=== PATIENT | female | born 1935 | race Caucasian/White ===

== ENCOUNTER → 2021-05-26 14:55 | Outpatient (BNVA) | payer MEDICARE, SELFPAY | PROVIDERS: PCP Internal Medicine; Visit Provider Anesthesiology | DX: M51.36 Other intervertebral disc degeneration, lumbar region (principal); M47.816 Spondylosis without myelopathy or radiculopathy, lumbar region; G89.4 Chronic pain syndrome; Z88.8 Allergy status to other drugs, medicaments and biological substances | CPT/HCPCS: 99202 ==

== ENCOUNTER 2021-09-19 07:18 | Day surgery (SDC) | payer MEDICARE, SELFPAY ==
--- NOTE | 2021-09-18 12:21 | HO.ANESPROP2 ---
Documented by User: Chelita Manrique NP 09/18/21 12:21 HPI - Anesthesia Eval Consult details Narrative: 86yo F for Bilateral L3-L4-DR L5 Diagnostic Medial Branch Block PMFSH Active Problems Active Problems: All Active Problems (Updated 05/26/21 @ 17:50 by Noel Benoit MD) Chronic pain syndrome (Acute) Spondylosis of lumbar spine (Acute) Disc degeneration, lumbar (Acute) Past Medical History Medical History (Updated 05/26/21 @ 17:50 by Noel Benoit MD) Arthritis Cervical spinal stenosis Chronic pain syndrome Constipation Cystocele with rectocele Disc degeneration, lumbar Diverticulosis History of uterine cancer Hx of esophageal reflux Hypercholesterolemia Hypertension Insomnia Low back pain 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 Rotator cuff tendonitis Spondylosis of lumbar spine Surgical History Surgical History (Updated 09/12/21 @ 10:51 by Linh Mar RN) H/O: hysterectomy History of repair of rectocele History of total right knee replacement Hx of cataract extraction Hx of total adrenalectomy Social History Social History Patient Tobacco Use Status: Never used Tobacco Use of substances other than those prescribed or required for medical reasons: No Are you DNR?: Yes Advance Directives: No Advance Directives Information Provided: Yes Recently lost weight without trying: No Nutrition Risks: No Nutritional Risk Meds Allergies Allergy/AdvReac Type Severity Reaction Status Date / Time Avyjdcy-NUV-IeW Reductase Allergy Intermediate muscle Verified 09/12/21 10:47 Inhibitor cramping [BQHUUUY-[id number]-BFK REDUCTASE INHIBITOR] Home Medications Medication Instructions Recorded Confirmed Last Taken Type aspirin 81 mg tablet,delayed 81 mg PO DAILY 05/26/21 Unknown History release (Adult Low Dose Aspirin) atenolol 25 mg tablet 25 mg PO DAILY 05/26/21 09/19/21 History calcium carbonate 600 mg calcium 600 mg PO DAILY 05/26/21 Unknown History (1,500 mg) tablet (Calcium) clotrimazole 1 % topical cream appl topical 05/26/21 Unknown History hydrochlorothiazide 25 mg tablet 25 mg PO DAILY 05/26/21 Unknown History losartan 25 mg tablet 75 mg PO DAILY 05/26/21 09/19/21 History omeprazole magnesium 10 mg oral 10 mg PO DAILY 05/26/21 Unknown History suspension,delayed release (Prilosec) Exam Exam Date and Time: September 18, 2021 1221 Height,Weight and Vital Signs: Height 5 ft Weight 69.853 kg Assessment and Plan Assessment Anesthesia Assessment: Chart Reviewed Documented by User: Arun Thompson MD 09/19/21 09:44 HPI - Anesthesia Eval Consult details Narrative: 86yo F for Bilateral L3-L4-DR L5 Diagnostic Medial Branch Block no CP , no SOB funtional status more than 4 mets PMFSH Past Medical History Medical History (Updated 05/26/21 @ 17:50 by Noel Benoit MD) Arthritis Cervical spinal stenosis Chronic pain syndrome Constipation Cystocele with rectocele Disc degeneration, lumbar Diverticulosis History of uterine cancer Hx of esophageal reflux Hypercholesterolemia Hypertension Insomnia Low back pain 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 Rotator cuff tendonitis Spondylosis of lumbar spine Family History Family history of problems with anesthesia: No Surgical History Surgical History (Updated 09/12/21 @ 10:51 by Linh Mar RN) H/O: hysterectomy History of repair of rectocele History of total right knee replacement Hx of cataract extraction Hx of total adrenalectomy History of Problems with Anesthesia: No Social History Social History Patient Tobacco Use Status: Never used Tobacco Use of substances other than those prescribed or required for medical reasons: No Are you DNR?: Yes Advance Directives: No Advance Directives Information Provided: Yes Recently lost weight without trying: No Nutrition Risks: No Nutritional Risk Meds Allergies Allergy/AdvReac Type Severity Reaction Status Date / Time Odetuqe-VHA-DjC Reductase Allergy Intermediate muscle Verified 09/12/21 10:47 Inhibitor cramping [TBZTSHZ-IUF-UEI REDUCTASE INHIBITOR] Home Medications Medication Instructions Recorded Confirmed Last Taken Type aspirin 81 mg tablet,delayed 81 mg PO DAILY 05/26/21 Unknown History release (Adult Low Dose Aspirin) atenolol 25 mg tablet 25 mg PO DAILY 05/26/21 09/19/21 History calcium carbonate 600 mg calcium 600 mg PO DAILY 05/26/21 Unknown History (1,500 mg) tablet (Calcium) clotrimazole 1 % topical cream appl topical 05/26/21 Unknown History hydrochlorothiazide 25 mg tablet 25 mg PO DAILY 05/26/21 Unknown History losartan 25 mg tablet 75 mg PO DAILY 05/26/21 09/19/21 History omeprazole magnesium 10 mg oral 10 mg PO DAILY 05/26/21 Unknown History suspension,delayed release (Prilosec) Exam Airway Mallampati Class: III TM Dist: >3cm Neck ROM: Full Partial: Upper Loose/Missing/Broken Teeth: Yes (Poor dentition ) Heart: S1,S2 Lungs: b/l breath sounds Assessment and Plan Assessment Anesthesia Assessment: Anesthesia Plan Discussed Final Anesthetic Review Family History of Problems with Anesthesia: No History of Problems with Anesthesia: No NPO: Yes ASA Class: II Final Preanesthetic Review: Meds/Allgs Chart Reviewed, Consent Obtained/Reviewed and Anes Risks/Benef Reviewed Patient Risk: Intermediate Procedure Risk: Intermediate Anesthetic Plan Anesthetic Plan: MAC: Disposition: Standard PACU
--- NOTE | 2021-09-19 | ECG_ITS ---
Test Reason : rbbb Blood Pressure : / mmHG Vent. Rate : 067 BPM Atrial Rate : 067 BPM P-R Int : 248 ms QRS Dur : 124 ms QT Int : 418 ms P-R-T Axes : 044 -52 009 degrees QTc Int : 441 ms Sinus rhythm with 1st degree A-V block Right bundle branch block Left anterior fascicular block Bifascicular block Minimal voltage criteria for LVH, may be normal variant ( R in aVL ) Possible Lateral infarct , age undetermined Abnormal ECG No previous ECGs available Referred By: Arun Thompson Electronically Signed By:MIGUEL PARADA MD
--- NOTE | ~2021-09-19 | FL_ITS ---
EXAMINATION: XR FLUOROSCOPY WITH IMAGES CLINICAL INFORMATION: Medial branch block bilateral. COMPARISON: None. TECHNIQUE: Fluoroscopy performed by Dr. Noel Benoit. Fluoroscopy time: 0.5 minutes DAP: 4.57 mGycm2 Images: 6 FINDINGS: There is a needle positioned adjacent to bilateral L5, L4 and L3 pedicles with contrast opacifying the soft tissues for medial branch block. There is scoliosis and degenerative disc changes L4-L5 and L5-S1 disc levels. FL/FL guidance in OR IMPRESSION: Fluoroscopy was provided to the referrer for medial branch block.
[2021-09-19 07:30] VITALS: BMI 29.7
[2021-09-19 07:46] VITALS: BP 163/81; PULSE 65; RESP 16; TEMP 35.8; O2SAT 97
[2021-09-19] MEDS: Lactated Ringers 1,000 ML 100 ML IVCONT (07:57)
--- NOTE | 2021-09-19 08:40 | MHC.SHP ---
Pre-Procedural Eval Section A Date of Service: 09/19/21 The patient is an INPATIENT: No Changes since office visit: Yes Patient answered all questions The History & Physical has been completed within 30 days and I have reviewed it.: No Section B Chief Complaint: spondylosis Details of Present Illness: as above Relevant Family History (Specify if Yes): No Relevant Social History: None Present Medications: see Short Stay Collaborative assessment Medical History: No relevant PMH History of Previous Operations: No relevant previous surgery Allergies: Allergies Allergy/AdvReac Type Severity Reaction Status Date / Time Fdbximy-OKR-BvG Reductase Allergy Intermediate muscle Verified 09/12/21 10:47 Inhibitor cramping [GGSISIU-LDY-OOP REDUCTASE INHIBITOR] Review of Systems Sugical H&P ROS: Negative: Constitution, Cardiovascular, Respiratory, Neurological, Psychiatric, Hem-Onc, Allergic/Immunologic, Gastrointestinal, Genitourinary, Musculoskeletal, Integumentary, Endocrine and Eyes/Ears/Nose/Throat Exam Surgical H&P Exam: Normal: HEENT, Normal: Heart, Normal: Lungs, Normal: Extremities, Normal: Abdomen, Normal: Skin and Normal: Neurological Plan Diagnosis/Plan: Unchanged I have reviewed the history and physical and performed a pertinent physical examination on my patient. No changes have occurred unless specified.
--- NOTE | 2021-09-19 08:43 | P.HPSUR_ITS ---
Pre-Procedural Eval Section A Date of Service: 09/19/21 Changes since office visit: Yes Patient answered all questions The History & Physical has been completed within 30 days and I have reviewed it.: No Section B Chief Complaint: spondylosis Details of Present Illness: spondylosis lumbar Relevant Family History (Specify if Yes): No Relevant Social History: None Present Medications: see Short Stay Collaborative assessment Medical History: No relevant PMH History of Previous Operations: No relevant previous surgery Allergies: Allergies Allergy/AdvReac Type Severity Reaction Status Date / Time Gyudvdc-DUB-CpC Reductase Allergy Intermediate muscle Verified 09/12/21 10:47 Inhibitor cramping [LCNYSJQ-YVK-EKQ REDUCTASE INHIBITOR] Review of Systems Sugical H&P ROS: Negative: Constitution, Cardiovascular, Respiratory, Neurological, Psychiatric, Hem-Onc, Allergic/Immunologic, Gastrointestinal, Genitourinary, Musculoskeletal, Integumentary, Endocrine and Eyes/Ears/Nos e/Throat Exam Surgical H&P Exam: Normal: HEENT, Normal: Heart, Normal: Lungs, Normal: Extremities, Normal: Abdomen, Normal: Skin and Normal: Neurological Plan Diagnosis/Plan: Unchanged I have reviewed the history and physical and performed a pertinent physical examination on my patient. No changes have occurred unless specified.
--- NOTE | 2021-09-19 09:04 | W.PM.OPN ---
Operative Note Operative Note Date of Service: 09/19/21 Narrative: diagnostic medial branch block with naropin. The patient came to the OR after obtaining informed consent, all risks and benefits were explained to the patient. She was positioned prone on the table prone, she was minimally sedated, opioids, ketamine were avoided. Time out was performed delineating correct name and date of , side and site of the injection. Her lower back was prepped with chloraprep, draped with sterile utility towels. C-arm was brought over the field and points of interests were sequentially delineated on the screen as the confluence of the bilateral transverse processes of L4 and L5 vertebrae with superior articular processes respectively bilaterally as well as superior articular processes of S1 bilaterally with bilateral sacral alae. Also attention was attracted to right SI joint significant gap between the upper portion of the iliac bone articular surface and upper portion of the sacral bone articular surface, The projections of the points of the interests of the lower lumbar spine as described above to the skin were injected with small amount of Lidocain 2% using 1&1/2inch? 25 gauge needle and after that 22gauge? 3&1/2 inch quinke point spinal needle was driven under fluoroscopy guidance to the points of interests in tunnel vision fashion. When the needle gently contacted the bone at the points of interests injection of the contrast was done demonstrating no intravascular and no intrathecal uptake of the contrast. After that small amount of naropin 0.5% less than 1 cc per each site was injected into the needle. Upon completion of the injections the needle was removed and sterile bandaids were applied. The patient tolerated the procedure well, she was taken outside the operating room to the recovery room where she recovered uneventfully. The pain diary was explained to the patient.
--- NOTE | 2021-09-19 09:09 | P.BOP_ITS ---
Brief Operative Note Date of Service: 09/19/21 Pre-op diagnosis: spondylosis lumbar spine without myelo or radiculopathy. Post-op diagnosis: same Procedure: bilateral diagnostic MBB L3, L3 DRL5 Implants: none Surgeon: Noel Benoit MD Anesthesia: MAC Was an Veterinary Receptionist used for this Procedure?: No Estimated blood loss (mL): 0 Pathology: none sent Condition: stable Disposition: PACU
[2021-09-19 09:47] VITALS: BP 144/77; PULSE 68; RESP 16; TEMP 36.6; O2SAT 98
[2021-09-19 10:02] VITALS: BP 155/74; PULSE 67; RESP 16; TEMP 36.6; O2SAT 97
[2021-09-19 10:16] VITALS: BP 158/76; PULSE 66; RESP 16; TEMP 36.8; O2SAT 98
== END 2021-09-19 10:47 | disposition home or self-care (01) ==
PROVIDERS: PCP Internal Medicine; Visit Provider Anesthesiology
PROC: (CPT 64493; principal; 2021-09-19 09:00)
DX: M47.816 Spondylosis without myelopathy or radiculopathy, lumbar region (principal); M51.36 Other intervertebral disc degeneration, lumbar region; G89.4 Chronic pain syndrome; M19.012 Primary osteoarthritis, left shoulder; M19.011 Primary osteoarthritis, right shoulder; I10 Essential (primary) hypertension; E66.01 Morbid (severe) obesity due to excess calories; Z68.30 Body mass index [BMI] 30.0-30.9, adult
CPT/HCPCS: 64493; 64494; 93005; J2795; Q9967

== ENCOUNTER → 2021-09-25 08:31 | Outpatient (BNVA) | payer MEDICARE, SELFPAY | PROVIDERS: PCP Internal Medicine; Visit Provider Anesthesiology | DX: G89.4 Chronic pain syndrome (principal); M51.36 Other intervertebral disc degeneration, lumbar region; M47.816 Spondylosis without myelopathy or radiculopathy, lumbar region | CPT/HCPCS: 99212 ==

== ENCOUNTER 2021-11-04 08:58 | Day surgery (SDC) | payer MEDICARE, SELFPAY ==
[2021-10-28 12:55] VITALS: BMI 29.5
--- NOTE | ~2021-11-04 | FL_ITS ---
EXAMINATION: XR FLUOROSCOPY WITH IMAGES CLINICAL INFORMATION: Implant bilateral leads COMPARISON: September 19, 2021 TECHNIQUE: Fluoroscopy performed by Dr. Noel Benoit. Fluoroscopy time: 0.2 minutes. Cumulative Dose: 2.69 mGy. DAP: 0.733 Gy-cm2. Images: 1. FINDINGS: Single image demonstrates leads overlying right and left sides of the L5 vertebral body. FL/FL guidance in OR IMPRESSION: Fluoroscopy for pain management procedure.
[2021-11-04 09:28] VITALS: BP 155/79; PULSE 78; RESP 16; TEMP 36.4; O2SAT 96
--- NOTE | 2021-11-04 10:20 | MHC.SHP ---
Pre-Procedural Eval Section A Date of Service: 11/04/21 The patient is an INPATIENT: No Changes since office visit: Yes Patient answered all questions The History & Physical has been completed within 30 days and I have reviewed it.: No Section B Chief Complaint: spondylosis Details of Present Illness: as above Relevant Family History (Specify if Yes): No Relevant Social History: None Present Medications: see Short Stay Collaborative assessment Medical History: No relevant PMH History of Previous Operations: No relevant previous surgery Allergies: Allergies Allergy/AdvReac Type Severity Reaction Status Date / Time Xjmziwy-AAT-DeT Reductase Allergy Intermediate muscle Verified 09/25/21 08:49 Inhibitor cramping [UEPDOUN-UGD-YRZ REDUCTASE INHIBITOR] Review of Systems Sugical H&P ROS: Negative: Constitution, Cardiovascular, Respiratory, Neurological, Psychiatric, Hem-Onc, Allergic/Immunologic, Gastrointestinal, Genitourinary, Musculoskeletal, Integumentary, Endocrine and Eyes/Ears/Nose/Throat Exam Surgical H&P Exam: Normal: HEENT, Normal: Heart, Normal: Lungs, Normal: Extremities, Normal: Abdomen, Normal: Skin and Normal: Neurological Plan Diagnosis/Plan: Unchanged I have reviewed the history and physical and performed a pertinent physical examination on my patient. No changes have occurred unless specified.
--- NOTE | 2021-11-04 10:21 | W.PM.OPN ---
Operative Note Operative Note Date of Service: 11/04/21 Narrative: After the risks, benefits and alternatives were discussed with the patient and informed consent was obtained, patient was placed in the prone position and padded to foster comfort. Time out was performed delineating correct site and side of the procedure , name and of the patient, patient participated in time out procedure. ?Sterily draped C-arm was brought over the operating field and clear picture of the lumbar spine was demonstrated on the screen bilateral laminas of the L5 VERTEBRAE were chosen as a target of the needle tip insertion . After identifying and marking the intended target, the skin around the planned entry point and the subcutaneous tissues were injected with local anesthetic lidocaine 2% forming skin wheal.. ?A percutaneous sleeve and stimulating probe lead introduction system were assembled, inserted and advanced through the skin wheal to the? point of interest under C-arm view in tunnel vision fashion, the introducer needle was delivered to a location in proximity to the multifidus muscles. Multiple stimulation parameters were used to deliver stimulation to the? nerve in concert with stimulating at multiple positions around the nerve. Nerve target acquisition was confirmed noting generation of? in the? corresponding to the nerve being stimulated. Various electrical parameter combinations were tested, and the lead location was adjusted? until the patient indicated? overlapping the distribution of the patient?s typical region of pain. The stimulating probe was removed from the introducer and a percutaneous lead was guided through the needle and delivered to a location in similar proximity to the nerve. Final location was verified with electrical stimulation. The introducer needle was removed, and the exposed end of the percutaneous lead was attached to an external stimulator unit. Various electrical parameter combinations were again tested until the patient indicated paresthesia or muscle tension overlapping the distribution of the patient?s typical region of pain. After confirming that lead impedance was in the normal range, the external unit was detached, the needle was removed, and the lead was anchored at the skin. The lead was threaded into the connector block and electrical continuity and desired patient response was confirmed. The connector block was attached to the external stimulator unit. The site was covered with a sterile occlusive dressing and an? image was taken to document final placement. ?Upon completion of the procedure the patient was taken outside the OR where she recovered uneventfully she went home without immediate complications.
[2021-11-04 11:00] VITALS: BP 182/87; PULSE 69; RESP 18; TEMP 36.3; O2SAT 97
--- NOTE | 2021-11-04 11:02 | PM.OP ---
Brief Operative Note Date of Service: 11/04/21 Pre-op diagnosis: spondylosis Post-op diagnosis: same Procedure: sprint PNS bilateral L5 Surgeon: Noel Benoit MD Anesthesia: local Was an Platform Software Engineer used for this Procedure?: No Estimated blood loss (mL): 0 Pathology: none sent Condition: stable Disposition: PACU
[2021-11-04 11:35] VITALS: BP 179/80; PULSE 65; RESP 20; TEMP 36.3; O2SAT 97
== END 2021-11-04 11:49 | disposition home or self-care (01) ==
PROVIDERS: PCP Internal Medicine; Visit Provider Anesthesiology
PROC: (CPT 64555; principal; 2021-11-04 11:00)
DX: M47.816 Spondylosis without myelopathy or radiculopathy, lumbar region (principal); G89.4 Chronic pain syndrome; M51.36 Other intervertebral disc degeneration, lumbar region; M54.50 Low back pain, unspecified; E89.6 Postprocedural adrenocortical (-medullary) hypofunction; E78.00 Pure hypercholesterolemia, unspecified; I10 Essential (primary) hypertension; Z79.899 Other long term (current) drug therapy; Z88.8 Allergy status to other drugs, medicaments and biological substances; Z96.651 Presence of right artificial knee joint
CPT/HCPCS: 64555; C1778; J0690; J2795

== ENCOUNTER → 2022-01-05 11:15 | Outpatient (BNVA) | payer MEDICARE, SELFPAY | PROVIDERS: PCP Internal Medicine; Visit Provider Anesthesiology | DX: M51.36 Other intervertebral disc degeneration, lumbar region (principal); M47.816 Spondylosis without myelopathy or radiculopathy, lumbar region; G89.4 Chronic pain syndrome | CPT/HCPCS: 99212 ==

== ENCOUNTER → 2022-07-20 10:05 | Outpatient (BNVA) | payer MEDICARE, SELFPAY | PROVIDERS: PCP Internal Medicine; Visit Provider Anesthesiology | DX: M51.36 Other intervertebral disc degeneration, lumbar region (principal); M47.816 Spondylosis without myelopathy or radiculopathy, lumbar region; G89.4 Chronic pain syndrome | CPT/HCPCS: 99212 ==

== ENCOUNTER → 2022-07-27 11:36 | Outpatient (BNVA) | payer MEDICARE, SELFPAY | PROVIDERS: PCP Internal Medicine; Visit Provider Anesthesiology | DX: G89.4 Chronic pain syndrome (principal); M51.36 Other intervertebral disc degeneration, lumbar region; M47.816 Spondylosis without myelopathy or radiculopathy, lumbar region | CPT/HCPCS: 99212 ==